=== PATIENT | female | born 1960 | race Caucasian/White ===

== ENCOUNTER 2017-12-26 10:29 | Inpatient (IN) | payer MEDICAID ==
[~2017-12-26] VITALS: Ht 167.6 cm; Wt 87.2 kg
[~2017-12-26 10:29] MED LIST: SIMV40TA3 PO
[2017-12-26 11:16] LABS: BASOPHILS # (AUTO) 0.03 x10^3/uL (0-0.1); BASOPHILS % (AUTO) 0 % (0-1); EOSINOPHILS % (AUTO) 4 % (1-7); LYMPHOCYTES # (AUTO) 2.65 x10^3/uL (1-3.4); LYMPHOCYTES % (AUTO) 29 % (22-44); MD NO; MEAN CORPUSCULAR HEMOGLOBIN 29.1 pg (27.0-34.8); MEAN CORPUSCULAR HGB CONC 34.1 g/dL (32.4-35.8); MEAN CORPUSCULAR VOLUME 85.3 fL (80-100); MEAN PLATELET VOLUME 7.2 fL (7.4-10.4); MONOCYTES # (AUTO) 0.82 x10^3/uL (0.2-0.8); MONOCYTES % (AUTO) 9 % (2-9); NEUTROPHILS # (AUTO) 5.41 x10^3/uL (1.8-6.8); NEUTROPHILS % (AUTO) 58 % (42-75); PLATELET COUNT 454 x10^3/uL (130-400); RED CELL DISTRIBUTION WIDTH 13.9 % (9.6-15.2)
[2017-12-26 11:24] LABS: ALBUMIN 3.3 g/dL (3.4-5.0); ANION GAP 8 mmol/L (5-15); CALCIUM 8.6 mg/dL (8.5-10.1); CHLORIDE 108 mmol/L (98-107)
[2017-12-26 11:28] LABS: ALANINE AMINOTRANSFERASE 20 U/L (12-78); ALKALINE PHOSPHATASE 89 U/L (45-117); BILIRUBIN,TOTAL 0.4 mg/dL (0.2-1.0); CREATININE 0.79 mg/dL (0.55-1.02); TOTAL PROTEIN 7.3 g/dL (6.4-8.2)
[2017-12-26] MEDS ORDERED: MORPHINE SULFATE 4 MG/ML, 1ML IVPush PRN (11:30)
[2017-12-26] MEDS ORDERED: SODIUM CHLORIDE FLUSH 10ML SYR IVF ONE (11:30)
[2017-12-26] MEDS ORDERED: ONDANSETRON 2MG/ML, 2ML IVPush ONE (11:30)
[2017-12-26] MEDS ORDERED: FLUT1AER INH (11:49)
[2017-12-26] MEDS ORDERED: ALBU2.5V11 NEB (11:49)
[2017-12-26] MEDS ORDERED: MORPHINE SULFATE 4 MG/ML, 1ML ONE ×2 (12:10→15:07)
[2017-12-26] MEDS ORDERED: ONDANSETRON 2MG/ML, 2ML ONE (12:12)
[2017-12-26 12:21] LABS: INTERNATIONAL NORMALIZED RATIO 0.9 (0.93-1.1); PROTHROMBIN TIME 9.4 Seconds (9.6-11.5)
[2017-12-26] MEDS ORDERED: OMNIPAQUE 350 MG/ML, 100ML BOTTLE ONE (12:31)
[2017-12-26] MEDS ORDERED: METRONIDAZOLE PMX 500MG/100ML 100 ML IV ONE (13:00)
[2017-12-26] MEDS ORDERED: AMPICILLIN/SULBACTAM 3 GM in SODIUM CHLORIDE 0.9% 100 ML IV ONE (13:00)
[2017-12-26] MEDS ORDERED: METRONIDAZOLE PMX 500MG/100ML 100 ML ONE (13:21)
[2017-12-26] MEDS: SODIUM CHLORIDE 0.9% 1,000 ML IV SCH (14:11)
[2017-12-26] MEDS ORDERED: ENALAPRILAT 1.25 MG/ML, 2ML IVPush PRN (14:30)
[2017-12-26] MEDS ORDERED: ALBUTEROL SULFATE 2.5MG/0.5ML NEB PRN (14:30)
[2017-12-26] MEDS: METRONIDAZOLE PMX 500MG/100ML 100 ML IV SCH ×2 (14:30→22:46)
[2017-12-26] MEDS: CEFTRIAXONE PMX 1GM/50ML 50 ML IV SCH (16:54)
[2017-12-26] MEDS: NICOTINE 7 MG/24 HR PATCH.TD24 TD SCH (16:55)
[2017-12-26 17:16] LABS: HEMOGRAM NOTE RECHECKED
[2017-12-26 17:21] VITALS: BP 110/70
[2017-12-26 18:54] LABS: MICROSCOPIC NOT IND
[2017-12-26 18:56] LABS: CULTURE INDICATED? NO
[2017-12-26 20:04] VITALS: BP 110/72
[2017-12-26] MEDS: SIMVASTATIN 40 MG TABLET PO SCH (20:17)
[2017-12-26] MEDS: ACETAMINOPHEN 325 MG TABLET PO PRN (20:17)
[2017-12-27 01:45] VITALS: BP 123/74
[2017-12-27 05:59] LABS: BASOPHILS # (AUTO) 0.04 x10^3/uL (0-0.1); BASOPHILS % (AUTO) 0 % (0-1); EOSINOPHILS # (AUTO) 0.38 x10^3/uL (0-0.4); EOSINOPHILS % (AUTO) 4 % (1-7); LYMPHOCYTES # (AUTO) 2.03 x10^3/uL (1-3.4); LYMPHOCYTES % (AUTO) 23 % (22-44); MD NO; MEAN CORPUSCULAR HEMOGLOBIN 28.8 pg (27.0-34.8); MEAN CORPUSCULAR HGB CONC 33.1 g/dL (32.4-35.8); MONOCYTES # (AUTO) 0.84 x10^3/uL (0.2-0.8); MONOCYTES % (AUTO) 9 % (2-9); NEUTROPHILS # (AUTO) 5.76 x10^3/uL (1.8-6.8); NEUTROPHILS % (AUTO) 64 % (42-75); PLATELET COUNT 372 x10^3/uL (130-400); RED BLOOD COUNT 4.05 x10^6/uL (3.82-5.3); RED CELL DISTRIBUTION WIDTH 14.3 % (9.6-15.2)
[2017-12-27 06:07] LABS: CHLORIDE 108 mmol/L (98-107)
[2017-12-27 06:11] LABS: ANION GAP 8 mmol/L (5-15); CALCIUM 7.9 mg/dL (8.5-10.1); CREATININE 0.55 mg/dL (0.55-1.02)
[2017-12-27] MEDS: SODIUM CHLORIDE 0.9% 1,000 ML IV SCH (07:39)
[2017-12-27] MEDS: METRONIDAZOLE PMX 500MG/100ML 100 ML IV SCH ×3 (07:39→23:22)
[2017-12-27] MEDS: FLUTICASONE/VILANTEROL 100-25MCG/INH INH SCH (07:39)
[2017-12-27] MEDS: ONDANSETRON 2MG/ML, 2ML IVPush PRN (07:48)
[2017-12-27 07:50] VITALS: BP 125/68
[2017-12-27 14:40] VITALS: BP 104/68
[2017-12-27] MEDS: ACETAMINOPHEN 325 MG TABLET PO PRN (15:45)
[2017-12-27] MEDS: NICOTINE 7 MG/24 HR PATCH.TD24 TD SCH (16:28)
[2017-12-27] MEDS: CEFTRIAXONE PMX 1GM/50ML 50 ML IV SCH (16:28)
[2017-12-27 20:00] VITALS: BP 111/58
[2017-12-27] MEDS: SIMVASTATIN 40 MG TABLET PO SCH (20:30)
[2017-12-28 02:00] VITALS: BP 120/64
[2017-12-28 05:26] LABS: BASOPHILS # (AUTO) 0.04 x10^3/uL (0-0.1); BASOPHILS % (AUTO) 0 % (0-1); EOSINOPHILS # (AUTO) 0.37 x10^3/uL (0-0.4); EOSINOPHILS % (AUTO) 4 % (1-7); LYMPHOCYTES # (AUTO) 1.84 x10^3/uL (1-3.4); LYMPHOCYTES % (AUTO) 18 % (22-44); MD NO; MEAN CORPUSCULAR HEMOGLOBIN 29.1 pg (27.0-34.8); MEAN CORPUSCULAR HGB CONC 33.7 g/dL (32.4-35.8); MEAN CORPUSCULAR VOLUME 86.3 fL (80-100); MEAN PLATELET VOLUME 7.4 fL (7.4-10.4); MONOCYTES % (AUTO) 10 % (2-9); NEUTROPHILS # (AUTO) 7.28 x10^3/uL (1.8-6.8); NEUTROPHILS % (AUTO) 69 % (42-75); PLATELET COUNT 380 x10^3/uL (130-400); RED BLOOD COUNT 3.56 x10^6/uL (3.82-5.3)
[2017-12-28 05:32] LABS: CHLORIDE 111 mmol/L (98-107)
[2017-12-28 05:38] LABS: ANION GAP 6 mmol/L (5-15); CALCIUM 7.8 mg/dL (8.5-10.1); CREATININE 0.69 mg/dL (0.55-1.02)
[2017-12-28 07:50] VITALS: BP 116/63
[2017-12-28] MEDS: METRONIDAZOLE PMX 500MG/100ML 100 ML IV SCH ×3 (07:51→23:41)
[2017-12-28] MEDS: FLUTICASONE/VILANTEROL 100-25MCG/INH INH SCH (07:51)
[2017-12-28] MEDS ORDERED: OMNIPAQUE 350 MG/ML, 100ML BOTTLE ONE (12:14)
[2017-12-28 14:10] VITALS: BP 117/65
[2017-12-28] MEDS ORDERED: FENTANYL PF 100 MCG/2ML ONE (14:23)
[2017-12-28] MEDS ORDERED: NALOXONE 1 MG/ML, 2ML ONE (14:24)
[2017-12-28 14:33] VITALS: BP 118/56
[2017-12-28] MEDS ORDERED: VISIPAQUE 320 MG/ML, 150ML BOTTLE ONE ×2 (15:00→15:51)
[2017-12-28] MEDS ORDERED: LIDOCAINE 2%, 10ML ONE (15:14)
[2017-12-28] MEDS: CEFTRIAXONE PMX 1GM/50ML 50 ML IV SCH (18:06)
[2017-12-28] MEDS: NICOTINE 7 MG/24 HR PATCH.TD24 TD SCH (18:06)
[2017-12-28 18:37] VITALS: BP 120/56
[2017-12-28] MEDS: SIMVASTATIN 40 MG TABLET PO SCH (20:41)
[2017-12-29] VITALS (12 sets, daily range): BP systolic 83–128; BP diastolic 52–66
[2017-12-29] MEDS: ONDANSETRON 2MG/ML, 2ML IVPush PRN (04:53)
[2017-12-29 05:29] LABS: CHLORIDE 113 mmol/L (98-107)
[2017-12-29 05:34] LABS: BASOPHILS # (AUTO) 0.03 x10^3/uL (0-0.1); BASOPHILS % (AUTO) 0 % (0-1); EOSINOPHILS # (AUTO) 0.22 x10^3/uL (0-0.4); EOSINOPHILS % (AUTO) 2 % (1-7); LYMPHOCYTES # (AUTO) 1.85 x10^3/uL (1-3.4); LYMPHOCYTES % (AUTO) 16 % (22-44); MD NO; MEAN CORPUSCULAR HEMOGLOBIN 29.5 pg (27.0-34.8); MEAN CORPUSCULAR HGB CONC 33.9 g/dL (32.4-35.8); MEAN CORPUSCULAR VOLUME 86.8 fL (80-100); MEAN PLATELET VOLUME 7.4 fL (7.4-10.4); MONOCYTES # (AUTO) 0.83 x10^3/uL (0.2-0.8); MONOCYTES % (AUTO) 7 % (2-9); NEUTROPHILS # (AUTO) 8.52 x10^3/uL (1.8-6.8); NEUTROPHILS % (AUTO) 75 % (42-75); PLATELET COUNT 346 x10^3/uL (130-400); RED CELL DISTRIBUTION WIDTH 14.2 % (9.6-15.2)
[2017-12-29 05:36] LABS: ANION GAP 6 mmol/L (5-15); CALCIUM 7.9 mg/dL (8.5-10.1); CREATININE 0.53 mg/dL (0.55-1.02)
[2017-12-29] MEDS: FLUTICASONE/VILANTEROL 100-25MCG/INH INH SCH (07:43)
[2017-12-29] MEDS: METRONIDAZOLE PMX 500MG/100ML 100 ML IV SCH ×2 (07:43→17:35)
[2017-12-29] MEDS ORDERED: CEFOTETAN 2 GM ONE (10:25)
[2017-12-29] MEDS ORDERED: SODIUM CHLORIDE 0.9% 1,000ML IVBOLUS STA (11:24)
[2017-12-29] MEDS ORDERED: DIPHENHYDRAMINE 12.5MG/5ML, 10ML UDC PO ONE (12:00)
[2017-12-29] MEDS ORDERED: ACETAMINOPHEN 325 MG TABLET PO ONE ×2 (12:00→20:00)
[2017-12-29 16:20] LABS: TROPONIN I 0.038 ng/mL (0.000-0.045)
[2017-12-29] MEDS ORDERED: GOLYTELY 4,000ML ORAL.SOL PO ONE (17:00)
[2017-12-29] MEDS: NICOTINE 7 MG/24 HR PATCH.TD24 TD SCH (17:46)
[2017-12-29] MEDS: CEFTRIAXONE PMX 1GM/50ML 50 ML IV SCH (18:40)
[2017-12-29] MEDS ORDERED: DIPHENHYDRAMINE 50 MG/ML, 1ML IVPush ONE (20:00)
[2017-12-29] MEDS ORDERED: DEXAMETHASONE 4 MG/ML, 1ML IVPush ONE (20:00)
[2017-12-29] MEDS ORDERED: FENTANYL PF 250 MCG/5ML ONE (20:31)
[2017-12-29] MEDS: SIMVASTATIN 40 MG TABLET PO SCH (21:00)
[2017-12-29] MEDS ORDERED: DEXAMETHASONE 4 MG/ML, 1ML ONE (21:17)
[2017-12-29] MEDS ORDERED: PROPOFOL 10 MG/ML, 20ML ONE (21:56)
[2017-12-29] MEDS ORDERED: ONDANSETRON 2MG/ML, 2ML ONE (21:56)
[2017-12-29] MEDS ORDERED: SUCCINYLCHOLINE 20 MG/ML, 10ML ONE (21:56)
[2017-12-29] MEDS ORDERED: ROCURONIUM 10MG/ML,5ML ONE (21:56)
[2017-12-29] MEDS ORDERED: MIDAZOLAM 1 MG/ML, 2ML IV PRN (22:00)
[2017-12-29] MEDS ORDERED: hydrALAzine 20 MG/ML, 1ML IV PRN (22:00)
[2017-12-29] MEDS ORDERED: ALBUTEROL/IPRATROPIUM 2.5MG/0.5MG, 3 ML NPPB PRN (22:00)
[2017-12-29] MEDS ORDERED: MEPERIDINE/PF 25MG/0.5ML IVPush PRN (22:00)
[2017-12-29] MEDS ORDERED: HYDROmorphone 1 MG/ML, 1ML IV PRN (22:00)
[2017-12-29] MEDS ORDERED: morphine SULFATE 10 MG/ML, 1ML IV PRN (22:00)
[2017-12-29] MEDS ORDERED: LABETALOL 5MG/ML, 20ML IV PRN (22:00)
[2017-12-29] MEDS ORDERED: PROMETHAZINE 12.5 MG SUPP PR PRN (22:00)
[2017-12-29] MEDS ORDERED: ALBUTEROL SULFATE 2.5 MG/3 ML NPPB PRN (22:00)
[2017-12-29] MEDS ORDERED: GLYCOPYRROLATE 0.4 MG/2 ML, 2ML ONE (22:02)
[2017-12-29] MEDS ORDERED: NEOSTIGMINE 1 MG/ML, 10ML ONE ×2 (22:05)
[2017-12-29] MEDS ORDERED: MEPERIDINE/PF 50 MG/ML ONE (22:12)
[2017-12-29] MEDS ORDERED: ALBUTEROL SULFATE 2.5MG/0.5ML NPPB PRN (22:30)
[2017-12-29] MEDS ORDERED: FENTANYL PF 100 MCG/2ML ONE (22:32)
[2017-12-29] MEDS ORDERED: ACETAMINOPHEN 650 MG/20.3 ML UDC ONE (22:36)
[2017-12-29] MEDS ORDERED: OXYcodone 5 MG/5 ML ORAL.SOL UDC ONE (22:36)
[2017-12-29] MEDS: FENTANYL PF 100 MCG/2ML IV PRN ×2 (22:40→22:50)
[2017-12-29] MEDS: OXYcodone 5 MG/5 ML ORAL.SOL UDC PO PRN (22:49)
[2017-12-29] MEDS: ACETAMINOPHEN 325 MG TABLET PO PRN (22:50)
[2017-12-30 00:29] VITALS: BP 120/78
[2017-12-30] MEDS: METRONIDAZOLE PMX 500MG/100ML 100 ML IV SCH ×3 (02:34→18:01)
[2017-12-30 02:50] VITALS: BP 131/80
[2017-12-30 04:54] LABS: MEAN CORPUSCULAR HEMOGLOBIN 30.1 pg (27.0-34.8); MEAN CORPUSCULAR HGB CONC 33.4 g/dL (32.4-35.8); MEAN CORPUSCULAR VOLUME 90.1 fL (80-100); MEAN PLATELET VOLUME 7.5 fL (7.4-10.4); PLATELET COUNT 285 x10^3/uL (130-400); RED CELL DISTRIBUTION WIDTH 13.9 % (9.6-15.2)
[2017-12-30 05:05] LABS: CALCIUM 7.6 mg/dL (8.5-10.1); CHLORIDE 112 mmol/L (98-107)
[2017-12-30 05:13] LABS: ANION GAP 6 mmol/L (5-15); CREATININE 0.62 mg/dL (0.55-1.02); TROPONIN I 0.035 ng/mL (0.000-0.045)
[2017-12-30 05:55] LABS: BASOPHILS # (AUTO) 0.01 x10^3/uL (0-0.1); BASOPHILS % (AUTO) 0 % (0-1); EOSINOPHILS # (AUTO) 0.01 x10^3/uL (0-0.4); EOSINOPHILS % (AUTO) 0 % (1-7); LYMPHOCYTES # (AUTO) 0.84 x10^3/uL (1-3.4); LYMPHOCYTES % (AUTO) 5 % (22-44); MD SCAN; MONOCYTES # (AUTO) 0.18 x10^3/uL (0.2-0.8); MONOCYTES % (AUTO) 1 % (2-9); NEUTROPHILS # (AUTO) 17.64 x10^3/uL (1.8-6.8); NEUTROPHILS % (AUTO) 95 % (42-75)
[2017-12-30 07:55] VITALS: BP 138/71
[2017-12-30] MEDS: FLUTICASONE/VILANTEROL 100-25MCG/INH INH SCH (10:10)
[2017-12-30] MEDS ORDERED: OXYcodone IR 5MG TABLET ONE (12:17)
[2017-12-30] MEDS: OXYcodone 5 MG/5 ML ORAL.SOL UDC PO PRN ×3 (12:23→20:51)
[2017-12-30 13:30] VITALS: BP 128/81
[2017-12-30] MEDS: CEFTRIAXONE PMX 1GM/50ML 50 ML IV SCH (18:01)
[2017-12-30] MEDS: NICOTINE 7 MG/24 HR PATCH.TD24 TD SCH (18:01)
[2017-12-30 19:37] VITALS: BP 138/76
[2017-12-30] MEDS: SIMVASTATIN 40 MG TABLET PO SCH (20:07)
[2017-12-30] MEDS: ONDANSETRON 4 MG TABLET PO PRN (20:08)
[2017-12-31] MEDS: METRONIDAZOLE PMX 500MG/100ML 100 ML IV SCH ×3 (02:06→18:09)
[2017-12-31] MEDS: OXYcodone 5 MG/5 ML ORAL.SOL UDC PO PRN ×4 (02:06→20:01)
[2017-12-31 02:07] VITALS: BP 133/71
[2017-12-31 05:16] LABS: BASOPHILS # (AUTO) 0.05 x10^3/uL (0-0.1); BASOPHILS % (AUTO) 0 % (0-1); EOSINOPHILS % (AUTO) 0 % (1-7); LYMPHOCYTES # (AUTO) 1.93 x10^3/uL (1-3.4); LYMPHOCYTES % (AUTO) 12 % (22-44); MD NO; MEAN CORPUSCULAR HEMOGLOBIN 30.7 pg (27.0-34.8); MEAN CORPUSCULAR HGB CONC 34.1 g/dL (32.4-35.8); MEAN PLATELET VOLUME 7.4 fL (7.4-10.4); MONOCYTES # (AUTO) 1.11 x10^3/uL (0.2-0.8); MONOCYTES % (AUTO) 7 % (2-9); NEUTROPHILS % (AUTO) 80 % (42-75); PLATELET COUNT 317 x10^3/uL (130-400); RED BLOOD COUNT 2.97 x10^6/uL (3.82-5.3); RED CELL DISTRIBUTION WIDTH 14.4 % (9.6-15.2)
[2017-12-31 05:24] LABS: ANION GAP 6 mmol/L (5-15); CHLORIDE 108 mmol/L (98-107)
[2017-12-31 05:25] LABS: CREATININE 0.57 mg/dL (0.55-1.02)
[2017-12-31] MEDS ORDERED: CALCIUM CARBONATE 500 MG TAB.CHEW PO PRN (07:00)
[2017-12-31 07:13] VITALS: BP 138/76
[2017-12-31] MEDS: FLUTICASONE/VILANTEROL 100-25MCG/INH INH SCH (08:29)
[2017-12-31 13:49] VITALS: BP 125/68
[2017-12-31] MEDS ORDERED: METHOCARBAMOL 500 MG TABLET PO PRN (16:30)
[2017-12-31] MEDS: CEFTRIAXONE PMX 1GM/50ML 50 ML IV SCH (16:54)
[2017-12-31] MEDS: PANTOPRAZOLE 20MG TABLET PO SCH (16:55)
[2017-12-31] MEDS: NICOTINE 7 MG/24 HR PATCH.TD24 TD SCH (18:02)
[2017-12-31 19:47] VITALS: BP 121/70
[2017-12-31] MEDS: SIMVASTATIN 40 MG TABLET PO SCH (20:02)
[2017-12-31] MEDS: FAMOTIDINE 20 MG TABLET PO SCH (20:02)
[2018-01-01] MEDS: OXYcodone 5 MG/5 ML ORAL.SOL UDC PO PRN ×5 (01:21→22:29)
[2018-01-01] MEDS: METRONIDAZOLE PMX 500MG/100ML 100 ML IV SCH ×3 (01:21→17:48)
[2018-01-01 01:24] VITALS: BP 131/77
[2018-01-01] MEDS: PANTOPRAZOLE 20MG TABLET PO SCH ×2 (05:12→16:38)
[2018-01-01 05:21] LABS: BASOPHILS # (AUTO) 0.03 x10^3/uL (0-0.1); BASOPHILS % (AUTO) 0 % (0-1); EOSINOPHILS # (AUTO) 0.09 x10^3/uL (0-0.4); EOSINOPHILS % (AUTO) 1 % (1-7); LYMPHOCYTES # (AUTO) 2.06 x10^3/uL (1-3.4); LYMPHOCYTES % (AUTO) 21 % (22-44); MD NO; MEAN CORPUSCULAR HEMOGLOBIN 30.7 pg (27.0-34.8); MEAN CORPUSCULAR HGB CONC 33.8 g/dL (32.4-35.8); MEAN CORPUSCULAR VOLUME 90.8 fL (80-100); MEAN PLATELET VOLUME 7.1 fL (7.4-10.4); MONOCYTES # (AUTO) 0.97 x10^3/uL (0.2-0.8); MONOCYTES % (AUTO) 10 % (2-9); NEUTROPHILS # (AUTO) 6.86 x10^3/uL (1.8-6.8); NEUTROPHILS % (AUTO) 69 % (42-75); PLATELET COUNT 323 x10^3/uL (130-400); RED BLOOD COUNT 2.82 x10^6/uL (3.82-5.3); RED CELL DISTRIBUTION WIDTH 14.1 % (9.6-15.2)
[2018-01-01 05:30] LABS: ANION GAP 7 mmol/L (5-15); CALCIUM 7.8 mg/dL (8.5-10.1); CHLORIDE 108 mmol/L (98-107)
[2018-01-01 05:32] LABS: CREATININE 0.61 mg/dL (0.55-1.02)
[2018-01-01 06:45] VITALS: BP 128/83
[2018-01-01] MEDS: FLUTICASONE/VILANTEROL 100-25MCG/INH INH SCH (08:36)
[2018-01-01] MEDS: FAMOTIDINE 20 MG TABLET PO SCH ×2 (08:36→19:39)
[2018-01-01] MEDS: CALCIUM CARBONATE 500 MG TAB.CHEW PO PRN (08:48)
[2018-01-01] MEDS: DOCUSATE 100 MG CAPSULE PO SCH ×2 (08:48→19:26)
[2018-01-01 14:11] VITALS: BP 108/68
[2018-01-01] MEDS: CEFTRIAXONE PMX 1GM/50ML 50 ML IV SCH (16:39)
[2018-01-01] MEDS: NICOTINE 7 MG/24 HR PATCH.TD24 TD SCH (17:50)
[2018-01-01] MEDS: ONDANSETRON 4 MG TABLET PO PRN (19:39)
[2018-01-01] MEDS: SIMVASTATIN 40 MG TABLET PO SCH (19:39)
[2018-01-01 19:59] VITALS: BP 128/70
[2018-01-01] MEDS: ONDANSETRON 2MG/ML, 2ML IVPush PRN (22:29)
[2018-01-02] MEDS: METRONIDAZOLE PMX 500MG/100ML 100 ML IV SCH ×3 (01:19→17:55)
[2018-01-02 02:09] VITALS: BP 129/77
[2018-01-02] MEDS: PROMETHAZINE 25 MG/ML, 1ML IM PRN ×2 (02:11→08:25)
[2018-01-02 06:01] LABS: BASOPHILS # (AUTO) 0.01 x10^3/uL (0-0.1); BASOPHILS % (AUTO) 0 % (0-1); EOSINOPHILS # (AUTO) 0.14 x10^3/uL (0-0.4); EOSINOPHILS % (AUTO) 1 % (1-7); LYMPHOCYTES # (AUTO) 1.33 x10^3/uL (1-3.4); LYMPHOCYTES % (AUTO) 10 % (22-44); MD NO; MEAN CORPUSCULAR HEMOGLOBIN 30.9 pg (27.0-34.8); MEAN CORPUSCULAR HGB CONC 33.9 g/dL (32.4-35.8); MEAN CORPUSCULAR VOLUME 91.1 fL (80-100); MEAN PLATELET VOLUME 7.1 fL (7.4-10.4); MONOCYTES # (AUTO) 0.12 x10^3/uL (0.2-0.8); MONOCYTES % (AUTO) 1 % (2-9); NEUTROPHILS # (AUTO) 11.98 x10^3/uL (1.8-6.8); NEUTROPHILS % (AUTO) 88 % (42-75); PLATELET COUNT 438 x10^3/uL (130-400); RED BLOOD COUNT 3.48 x10^6/uL (3.82-5.3); RED CELL DISTRIBUTION WIDTH 14.6 % (9.6-15.2)
[2018-01-02 07:51] VITALS: BP 127/77
[2018-01-02] MEDS: DOCUSATE 100 MG CAPSULE PO SCH ×2 (08:18→20:41)
[2018-01-02] MEDS: PANTOPRAZOLE 20MG TABLET PO SCH ×2 (08:18→20:41)
[2018-01-02] MEDS: FAMOTIDINE 20 MG TABLET PO SCH ×2 (08:18→20:41)
[2018-01-02] MEDS: FLUTICASONE/VILANTEROL 100-25MCG/INH INH SCH (08:18)
[2018-01-02] MEDS ORDERED: SODIUM CHLORIDE 0.9% 1,000 ML IV SCH (12:43)
[2018-01-02] MEDS: METOCLOPRAMIDE 5 MG/ML, 2ML IVPush SCH ×2 (13:00→17:58)
[2018-01-02] MEDS ORDERED: MAGNESIUM SULFATE PMX 2GM/50ML 50 ML IV ONE (13:00)
[2018-01-02 13:52] VITALS: BP 124/78
[2018-01-02] MEDS: SODIUM CHLORIDE 0.9% 1,000 ML with POTASSIUM CHLORIDE 20 MEQ IV SCH (14:32)
[2018-01-02] MEDS: NICOTINE 7 MG/24 HR PATCH.TD24 TD SCH (16:25)
[2018-01-02] MEDS: CEFTRIAXONE PMX 1GM/50ML 50 ML IV SCH (16:25)
[2018-01-02 18:57] VITALS: BP 118/68
[2018-01-02] MEDS: SIMVASTATIN 40 MG TABLET PO SCH (20:41)
[2018-01-02] MEDS: ONDANSETRON 2MG/ML, 2ML IVPush PRN (23:24)
[2018-01-02] MEDS ORDERED: ASPIRIN 81 MG TABLET CHEW ONE (23:58)
[2018-01-03] MEDS ORDERED: MAALOX/HYOSCYAMINE/LIDOCAINE 45 ML BTL PO ONE
[2018-01-03] MEDS ORDERED: ASPIRIN 81 MG TABLET CHEW PO ONE
[2018-01-03] MEDS ORDERED: NITROGLYCERIN 0.4 MG BOTTLE (25 TABS) SL PRN
[2018-01-03 00:26] LABS: TROPONIN I 0.024 ng/mL (0.000-0.045)
[2018-01-03 00:51] VITALS: BP 113/73
[2018-01-03] MEDS: METRONIDAZOLE PMX 500MG/100ML 100 ML IV SCH ×3 (01:21→17:44)
[2018-01-03] MEDS: SODIUM CHLORIDE 0.9% 1,000 ML with POTASSIUM CHLORIDE 20 MEQ IV SCH (05:11)
[2018-01-03 05:42] LABS: BASOPHILS # (AUTO) 0.02 x10^3/uL (0-0.1); BASOPHILS % (AUTO) 0 % (0-1); EOSINOPHILS # (AUTO) 0.14 x10^3/uL (0-0.4); EOSINOPHILS % (AUTO) 1 % (1-7); LYMPHOCYTES # (AUTO) 1.67 x10^3/uL (1-3.4); LYMPHOCYTES % (AUTO) 15 % (22-44); MD NO; MEAN CORPUSCULAR VOLUME 91.2 fL (80-100); MEAN PLATELET VOLUME 7.3 fL (7.4-10.4); MONOCYTES # (AUTO) 0.75 x10^3/uL (0.2-0.8); MONOCYTES % (AUTO) 7 % (2-9); NEUTROPHILS # (AUTO) 8.79 x10^3/uL (1.8-6.8); NEUTROPHILS % (AUTO) 77 % (42-75); PLATELET COUNT 433 x10^3/uL (130-400); RED BLOOD COUNT 3.12 x10^6/uL (3.82-5.3); RED CELL DISTRIBUTION WIDTH 15.1 % (9.6-15.2)
[2018-01-03 05:43] LABS: ANION GAP 7 mmol/L (5-15); CALCIUM 7.7 mg/dL (8.5-10.1); CHLORIDE 109 mmol/L (98-107)
[2018-01-03 05:44] LABS: CREATININE 0.53 mg/dL (0.55-1.02)
[2018-01-03 07:00] VITALS: BP 114/72
[2018-01-03] MEDS: FLUTICASONE/VILANTEROL 100-25MCG/INH INH SCH (08:25)
[2018-01-03] MEDS: DOCUSATE 100 MG CAPSULE PO SCH ×2 (08:25→19:56)
[2018-01-03] MEDS: ONDANSETRON 4 MG TABLET PO PRN (08:25)
[2018-01-03] MEDS: PANTOPRAZOLE 20MG TABLET PO SCH ×2 (08:25→19:56)
[2018-01-03] MEDS ORDERED: CEFTRIAXONE PMX 2GM/50ML 50 ML IV SCH (10:00)
[2018-01-03] MEDS ORDERED: HYDROmorphone 2 MG/ML, 1ML IVPush PRN (11:00)
[2018-01-03] MEDS ORDERED: KETOROLAC 10MG TABLET PO PRN (11:00)
[2018-01-03 13:25] VITALS: BP 133/78
[2018-01-03] MEDS: POLYETHYLENE GLYCOL 17 GM PACKET PO SCH (13:27)
[2018-01-03] MEDS ORDERED: ONDANSETRON 2MG/ML, 2ML IVPush PRN (15:38)
[2018-01-03] MEDS: D5%-0.45NACL+KCL 20MEQ 1,000 ML IV SCH (16:27)
[2018-01-03] MEDS: NICOTINE 7 MG/24 HR PATCH.TD24 TD SCH (17:44)
[2018-01-03] MEDS: ONDANSETRON ODT 4 MG PO PRN (18:22)
[2018-01-03] MEDS: SIMVASTATIN 40 MG TABLET PO SCH (19:56)
[2018-01-03 20:49] VITALS: BP 116/69
[2018-01-04] MEDS: METRONIDAZOLE PMX 500MG/100ML 100 ML IV SCH ×3 (02:07→17:58)
[2018-01-04 02:08] VITALS: BP 127/81
[2018-01-04] MEDS: D5%-0.45NACL+KCL 20MEQ 1,000 ML IV SCH (05:28)
[2018-01-04 05:47] LABS: BASOPHILS # (AUTO) 0.05 x10^3/uL (0-0.1); BASOPHILS % (AUTO) 1 % (0-1); EOSINOPHILS # (AUTO) 0.44 x10^3/uL (0-0.4); EOSINOPHILS % (AUTO) 5 % (1-7); LYMPHOCYTES % (AUTO) 17 % (22-44); MD NO; MEAN CORPUSCULAR HEMOGLOBIN 30.6 pg (27.0-34.8); MEAN CORPUSCULAR HGB CONC 33.7 g/dL (32.4-35.8); MEAN CORPUSCULAR VOLUME 90.9 fL (80-100); MEAN PLATELET VOLUME 6.7 fL (7.4-10.4); MONOCYTES # (AUTO) 0.67 x10^3/uL (0.2-0.8); MONOCYTES % (AUTO) 7 % (2-9); NEUTROPHILS % (AUTO) 71 % (42-75); PLATELET COUNT 549 x10^3/uL (130-400); RED BLOOD COUNT 3.12 x10^6/uL (3.82-5.3); RED CELL DISTRIBUTION WIDTH 16.1 % (9.6-15.2)
[2018-01-04 05:58] LABS: ALANINE AMINOTRANSFERASE 12 U/L (12-78); ALBUMIN 2.1 g/dL (3.4-5.0); ANION GAP 8 mmol/L (5-15); CALCIUM 7.7 mg/dL (8.5-10.1); CHLORIDE 107 mmol/L (98-107); CREATININE 0.62 mg/dL (0.55-1.02)
[2018-01-04 06:00] LABS: ALKALINE PHOSPHATASE 34 U/L (45-117); BILIRUBIN,TOTAL 0.2 mg/dL (0.2-1.0); TOTAL PROTEIN 5.2 g/dL (6.4-8.2)
[2018-01-04] MEDS ORDERED: SODIUM PHOSPHATE 30 MMOL in SODIUM CHLORIDE 0.9% 500 ML IV ONE (07:00)
[2018-01-04] MEDS ORDERED: SODIUM PHOSPHATE 4 MEQ/ML IV SCH (07:00)
[2018-01-04 07:02] VITALS: BP 124/80
[2018-01-04] MEDS: FLUTICASONE/VILANTEROL 100-25MCG/INH INH SCH (09:02)
[2018-01-04] MEDS: POLYETHYLENE GLYCOL 17 GM PACKET PO SCH (09:02)
[2018-01-04] MEDS: DOCUSATE 100 MG CAPSULE PO SCH ×2 (09:02→19:40)
[2018-01-04] MEDS: PANTOPRAZOLE 20MG TABLET PO SCH ×2 (09:02→19:40)
[2018-01-04] MEDS: CEFTRIAXONE 2 GM in DEXTROSE 5% 50 ML IV SCH (10:01)
[2018-01-04 14:54] VITALS: BP 127/78
[2018-01-04] MEDS: NICOTINE 7 MG/24 HR PATCH.TD24 TD SCH (16:28)
[2018-01-04] MEDS: ACETAMINOPHEN 325 MG TABLET PO PRN ×2 (16:28→22:36)
[2018-01-04 19:37] VITALS: BP 109/68
[2018-01-04] MEDS: SIMVASTATIN 40 MG TABLET PO SCH (19:40)
[2018-01-04] MEDS: ONDANSETRON ODT 4 MG PO PRN (20:49)
[2018-01-05 00:25] VITALS: BP 118/70
[2018-01-05 00:29] VITALS: BP 118/72
[2018-01-05] MEDS: METRONIDAZOLE PMX 500MG/100ML 100 ML IV SCH ×3 (02:19→17:35)
[2018-01-05 05:23] LABS: BASOPHILS # (AUTO) 0.03 x10^3/uL (0-0.1); BASOPHILS % (AUTO) 0 % (0-1); EOSINOPHILS # (AUTO) 0.57 x10^3/uL (0-0.4); EOSINOPHILS % (AUTO) 7 % (1-7); LYMPHOCYTES # (AUTO) 1.29 x10^3/uL (1-3.4); LYMPHOCYTES % (AUTO) 16 % (22-44); MD NO; MEAN CORPUSCULAR HEMOGLOBIN 30.1 pg (27.0-34.8); MEAN CORPUSCULAR HGB CONC 32.9 g/dL (32.4-35.8); MEAN CORPUSCULAR VOLUME 91.4 fL (80-100); MEAN PLATELET VOLUME 7.1 fL (7.4-10.4); MONOCYTES # (AUTO) 0.76 x10^3/uL (0.2-0.8); MONOCYTES % (AUTO) 10 % (2-9); NEUTROPHILS # (AUTO) 5.38 x10^3/uL (1.8-6.8); NEUTROPHILS % (AUTO) 67 % (42-75); PLATELET COUNT 591 x10^3/uL (130-400); RED BLOOD COUNT 3.12 x10^6/uL (3.82-5.3); RED CELL DISTRIBUTION WIDTH 15.9 % (9.6-15.2)
[2018-01-05 05:33] LABS: CHLORIDE 109 mmol/L (98-107)
[2018-01-05 05:37] LABS: ALBUMIN 2.1 g/dL (3.4-5.0); ANION GAP 9 mmol/L (5-15); CALCIUM 7.8 mg/dL (8.5-10.1); CREATININE 0.52 mg/dL (0.55-1.02)
[2018-01-05] MEDS: D5%-0.45NACL+KCL 20MEQ 1,000 ML IV SCH (07:16)
[2018-01-05 09:30] VITALS: BP 117/57
[2018-01-05] MEDS: POLYETHYLENE GLYCOL 17 GM PACKET PO SCH (09:49)
[2018-01-05] MEDS: PANTOPRAZOLE 20MG TABLET PO SCH ×2 (09:49→20:18)
[2018-01-05] MEDS: DOCUSATE 100 MG CAPSULE PO SCH ×2 (09:49→20:18)
[2018-01-05] MEDS: FLUTICASONE/VILANTEROL 100-25MCG/INH INH SCH (09:49)
[2018-01-05] MEDS: CEFTRIAXONE 2 GM in DEXTROSE 5% 50 ML IV SCH (11:07)
[2018-01-05 13:12] LABS: ALBUMIN 2.3 g/dL (3.4-5.0); ANION GAP 8 mmol/L (5-15); CALCIUM 7.9 mg/dL (8.5-10.1); CHLORIDE 106 mmol/L (98-107); CREATININE 0.55 mg/dL (0.55-1.02)
[2018-01-05] MEDS: ENOXAPARIN 40 MG/0.4 ML SQ SCH (13:25)
[2018-01-05 14:19] VITALS: BP 114/71
[2018-01-05] MEDS: NICOTINE 7 MG/24 HR PATCH.TD24 TD SCH (17:34)
[2018-01-05 20:14] VITALS: BP 119/72
[2018-01-05] MEDS: SIMVASTATIN 40 MG TABLET PO SCH (20:18)
[2018-01-06 02:17] VITALS: BP 117/70
[2018-01-06] MEDS: METRONIDAZOLE PMX 500MG/100ML 100 ML IV SCH ×2 (02:21→10:37)
[2018-01-06] MEDS: CALCIUM CARBONATE 500 MG TAB.CHEW PO PRN (02:40)
[2018-01-06 05:13] LABS: BASOPHILS # (AUTO) 0.03 x10^3/uL (0-0.1); BASOPHILS % (AUTO) 0 % (0-1); EOSINOPHILS # (AUTO) 0.38 x10^3/uL (0-0.4); EOSINOPHILS % (AUTO) 5 % (1-7); LYMPHOCYTES # (AUTO) 1.34 x10^3/uL (1-3.4); LYMPHOCYTES % (AUTO) 18 % (22-44); MD NO; MEAN CORPUSCULAR HEMOGLOBIN 30.9 pg (27.0-34.8); MEAN CORPUSCULAR HGB CONC 33.7 g/dL (32.4-35.8); MEAN CORPUSCULAR VOLUME 91.7 fL (80-100); MEAN PLATELET VOLUME 7.2 fL (7.4-10.4); MONOCYTES # (AUTO) 0.84 x10^3/uL (0.2-0.8); MONOCYTES % (AUTO) 12 % (2-9); NEUTROPHILS # (AUTO) 4.71 x10^3/uL (1.8-6.8); NEUTROPHILS % (AUTO) 65 % (42-75); PLATELET COUNT 566 x10^3/uL (130-400); RED CELL DISTRIBUTION WIDTH 15.5 % (9.6-15.2)
[2018-01-06 06:45] VITALS: BP 134/78
[2018-01-06 06:50] LABS: ALBUMIN 2.2 g/dL (3.4-5.0); ANION GAP 8 mmol/L (5-15); CHLORIDE 108 mmol/L (98-107); CREATININE 0.53 mg/dL (0.55-1.02)
[2018-01-06] MEDS: PANTOPRAZOLE 20MG TABLET PO SCH (09:37)
[2018-01-06] MEDS: DOCUSATE 100 MG CAPSULE PO SCH (09:37)
[2018-01-06] MEDS: POLYETHYLENE GLYCOL 17 GM PACKET PO SCH (09:37)
[2018-01-06] MEDS: FLUTICASONE/VILANTEROL 100-25MCG/INH INH SCH (09:37)
[2018-01-06] MEDS ORDERED: ASPI-621 PO (11:36)
[2018-01-06] MEDS ORDERED: METR500T PO (11:36)
[2018-01-06] MEDS ORDERED: PANT20TA3 PO (11:36)
[2018-01-06] MEDS ORDERED: CIPR500T87 PO (11:36)
[2018-01-06] MEDS ORDERED: CARV3.1212 PO (11:38)
[2018-01-06] MEDS: CEFTRIAXONE 2 GM in DEXTROSE 5% 50 ML IV SCH (11:44)
[2018-01-06] MEDS: ENOXAPARIN 40 MG/0.4 ML SQ SCH (12:44)
[2018-01-06 12:57] VITALS: BP 130/78
[2018-01-07] MEDS ORDERED: ASPIRIN 81 MG TABLET EC PO SCH (06:00)
== END 2018-01-06 17:00 | disposition home health service (06) | DRG 330 ==
LOC: ED 13:04 → EDIP 13:25 → 3NE 15:35 → 5SO 12-29 17:04 → 3NE 01-01 11:59 → 5SO 01-03 00:45 → DCLOUNGE 01-06 16:26
PROVIDERS: ADMIT Internal Medicine; ATTEND Internal Medicine
PROC: 04VB3DZ Restriction of Inferior Mesenteric Artery with Intraluminal Device, Percutaneous Approach (ICD-10-PCS; 2017-12-29)
PROC: 0D1L0Z4 Bypass Transverse Colon to Cutaneous, Open Approach (ICD-10-PCS; 2017-12-29)
PROC: 0DBM0ZZ Excision of Descending Colon, Open Approach (ICD-10-PCS; 2017-12-29)
PROC: 30233N1 Transfusion of Nonautologous Red Blood Cells into Peripheral Vein, Percutaneous Approach (ICD-10-PCS; principal; 2017-12-29 20:45)
DX: K57.33 Diverticulitis of large intestine without perforation or abscess with bleeding (principal); D62 Acute posthemorrhagic anemia; E44.1 Mild protein-calorie malnutrition; K56.7 Ileus, unspecified; D72.829 Elevated white blood cell count, unspecified; Z68.31 Body mass index [BMI] 31.0-31.9, adult; E78.5 Hyperlipidemia, unspecified; F17.200 Nicotine dependence, unspecified, uncomplicated; I25.10 Atherosclerotic heart disease of native coronary artery without angina pectoris; I25.2 Old myocardial infarction; J45.909 Unspecified asthma, uncomplicated; K21.9 Gastro-esophageal reflux disease without esophagitis; Y84.8 Other medical procedures as the cause of abnormal reaction of the patient, or of later complication, without mention of misadventure at the time of the procedure; Z82.49 Family history of ischemic heart disease and other diseases of the circulatory system; Z83.3 Family history of diabetes mellitus; Z85.41 Personal history of malignant neoplasm of cervix uteri; Z87.442 Personal history of urinary calculi; Z90.49 Acquired absence of other specified parts of digestive tract; Z90.710 Acquired absence of both cervix and uterus; Z93.3 Colostomy status; Z95.5 Presence of coronary angioplasty implant and graft; Z88.8 Allergy status to other drugs, medicaments and biological substances
CPT/HCPCS: 36415; 37244; 74174; 74177; 80048; 80053; 81003; 82040; 83605; 83690; 83735; 84100; 84484; 85014; 85018; 85025; 85610; 85730; 86078; 86850; 86900; 86923; 88307; 93005; 93306; 99156; 99157; 99285; C1894; J0295; J0696; J1100; J1650; J2175; J2405; J2550; J2704; J2710; J3010; J3480; J3490; Q0162; Q9967; C1751; C1760; C1765; C1769; J0330; J1200; J2310; J2765; J3475; J7030; J7040; P9016; S0074

== ENCOUNTER 2018-03-26 12:06 | Inpatient (IN) | payer MEDICAID ==
[~2018-03-26] VITALS: Ht 170.2 cm; Wt 84.5 kg
[~2018-03-26 12:06] MED LIST changes: +ALBU2.5V11 NEB; +ASPI-621 PO; +CARV3.1212 PO; +CIPR500T87 PO; +EPHEDRINE 50 MG/ML, 1ML ONE; +FLUT1AER INH; +METR500T PO; +PANT20TA3 PO; +PHENYLEPHRINE 10 MG/ML ONE
[2018-03-26] MEDS ORDERED: LACTATED RINGERS 1,000 ML IV SCH (13:07)
[2018-03-26 13:10] VITALS: BP 149/86
[2018-03-26] MEDS ORDERED: EPINEPHRINE 1 MG/ML, 1ML ONE (13:26)
[2018-03-26] MEDS ORDERED: BUPIVACAINE 0.25% ONE (13:26)
[2018-03-26] MEDS ORDERED: MIDAZOLAM 1 MG/ML, 2ML ONE (13:42)
[2018-03-26] MEDS ORDERED: FENTANYL PF 250 MCG/5ML ONE ×2 (13:43→15:42)
[2018-03-26] MEDS ORDERED: BUPIVACAINE/PF-EPI 0.25% 1:200K INFIL ONE (14:29)
[2018-03-26] MEDS ORDERED: DEXAMETHASONE 4 MG/ML, 1ML ONE (15:44)
[2018-03-26] MEDS ORDERED: SUCCINYLCHOLINE 20 MG/ML, 10ML ONE (15:44)
[2018-03-26] MEDS ORDERED: PROPOFOL 10 MG/ML, 20ML ONE (15:44)
[2018-03-26] MEDS ORDERED: CEFAZOLIN 1,000 MG ONE (15:44)
[2018-03-26] MEDS ORDERED: ROCURONIUM 10MG/ML,5ML ONE ×2 (15:44)
[2018-03-26] MEDS ORDERED: ONDANSETRON 2MG/ML, 2ML ONE (15:44)
[2018-03-26] MEDS ORDERED: GLYCOPYRROLATE 0.2MG/1ML, 5ML ONE (15:44)
[2018-03-26] MEDS ORDERED: NEOSTIGMINE 1 MG/ML, 10ML ONE (15:44)
[2018-03-26] MEDS ORDERED: SUGAMMADEX 200 MG/2 ML IVPush ONE (16:33)
[2018-03-26] MEDS: LACTATED RINGERS 1,000 ML IV SCH (16:42)
[2018-03-26] MEDS ORDERED: LORazepam 2 MG/ML, 1ML IVPush PRN ×2 (17:00→17:30)
[2018-03-26] MEDS: ENOXAPARIN 30 MG/0.3 ML SQ SCH (17:00)
[2018-03-26] MEDS: ACETAMINOPHEN 500 MG TABLET PO SCH ×2 (17:00→23:06)
[2018-03-26] MEDS ORDERED: FENTANYL PF 100 MCG/2ML IVPush PRN (17:00)
[2018-03-26] MEDS ORDERED: CALCIUM CARBONATE 500 MG TAB.CHEW PO PRN (17:00)
[2018-03-26] MEDS ORDERED: DIPHENHYDRAMINE 50 MG/ML, 1ML IVPush PRN (17:00)
[2018-03-26] MEDS ORDERED: HYDROmorphone 2 MG/ML, 1ML ONE (17:15)
[2018-03-26] MEDS ORDERED: LORazepam 2 MG/ML, 1ML ONE (17:16)
[2018-03-26] MEDS ORDERED: OXYcodone 5 MG/5 ML ORAL.SOL UDC ONE (17:16)
[2018-03-26] MEDS ORDERED: ACETAMINOPHEN 325 MG TABLET PO PRN (17:30)
[2018-03-26] MEDS ORDERED: OXYcodone 5 MG/5 ML ORAL.SOL UDC PO PRN (17:30)
[2018-03-26] MEDS ORDERED: HYDROmorphone 1 MG/ML, 1ML IV PRN (17:30)
[2018-03-26] MEDS ORDERED: FENTANYL PF 100 MCG/2ML IV PRN (17:30)
[2018-03-26] MEDS ORDERED: ONDANSETRON ODT 8 MG PO PRN (17:30)
[2018-03-26] MEDS ORDERED: MORPHINE SULFATE 4 MG/ML, 1ML IVPush PRN (17:30)
[2018-03-26] MEDS ORDERED: HYDROcodone/APAP 7.5-325MG/15ML UDC PO PRN (17:30)
[2018-03-26] MEDS ORDERED: hydrALAzine 20 MG/ML, 1ML IV PRN (17:30)
[2018-03-26] MEDS ORDERED: PROMETHAZINE 25 MG/ML, 1ML IV PRN (17:30)
[2018-03-26] MEDS ORDERED: LABETALOL 5MG/ML, 20ML IV PRN (17:30)
[2018-03-26 19:03] VITALS: BP 134/75
[2018-03-27 00:41] VITALS: BP 145/72
[2018-03-27 03:22] VITALS: BP 130/68
[2018-03-27] MEDS: IBUPROFEN 800 MG TABLET PO SCH ×4 (03:34→23:50)
[2018-03-27] MEDS ORDERED: ALBUTEROL SULFATE 2.5 MG/3 ML ONE (04:44)
[2018-03-27 04:53] LABS: BASOPHILS # (AUTO) 0.02 x10^3/uL (0-0.1); BASOPHILS % (AUTO) 0 % (0-1); EOSINOPHILS % (AUTO) 0 % (1-7); LYMPHOCYTES # (AUTO) 0.52 x10^3/uL (1-3.4); LYMPHOCYTES % (AUTO) 4 % (22-44); MD NO; MEAN CORPUSCULAR HEMOGLOBIN 27.4 pg (27.0-34.8); MEAN CORPUSCULAR HGB CONC 33.1 g/dL (32.4-35.8); MEAN CORPUSCULAR VOLUME 82.8 fL (80-100); MEAN PLATELET VOLUME 7.4 fL (7.4-10.4); MONOCYTES # (AUTO) 0.54 x10^3/uL (0.2-0.8); MONOCYTES % (AUTO) 4 % (2-9); NEUTROPHILS # (AUTO) 13.55 x10^3/uL (1.8-6.8); NEUTROPHILS % (AUTO) 93 % (42-75); PLATELET COUNT 323 x10^3/uL (130-400); RED BLOOD COUNT 4.68 x10^6/uL (3.82-5.3); RED CELL DISTRIBUTION WIDTH 15.5 % (9.6-15.2)
[2018-03-27] MEDS ORDERED: ALBUTEROL 2.5 MG INH PRN (05:00)
[2018-03-27] MEDS ORDERED: ALBUTEROL SULFATE 2.5 MG/3 ML NPPB PRN ×3 (05:00→05:30)
[2018-03-27 05:07] LABS: ANION GAP 7 mmol/L (5-15); CALCIUM 8.6 mg/dL (8.5-10.1); CHLORIDE 107 mmol/L (98-107)
[2018-03-27] MEDS: OXYcodone IR 5MG TABLET PO PRN ×3 (06:00→20:49)
[2018-03-27] MEDS: ACETAMINOPHEN 500 MG TABLET PO SCH ×3 (06:00→16:54)
[2018-03-27] MEDS: ONDANSETRON 2MG/ML, 2ML IVPush PRN ×2 (06:00→12:19)
[2018-03-27 07:15] VITALS: BP 128/67
[2018-03-27] MEDS: CARVEDILOL 3.125 MG TABLET PO SCH ×2 (08:35→20:49)
[2018-03-27] MEDS: ENOXAPARIN 30 MG/0.3 ML SQ SCH ×2 (08:35→20:48)
[2018-03-27] MEDS: PANTOPRAZOLE 20MG TABLET PO SCH ×2 (08:35→20:49)
[2018-03-27 12:26] VITALS: BP 126/67
[2018-03-27 19:01] VITALS: BP 121/60
[2018-03-27] MEDS: SIMVASTATIN 40 MG TABLET PO SCH (20:49)
[2018-03-27] MEDS: LACTATED RINGERS 1,000 ML IV SCH (23:50)
[2018-03-28] MEDS: OXYcodone IR 5MG TABLET PO PRN ×2 (00:12→21:54)
[2018-03-28] MEDS: ACETAMINOPHEN 500 MG TABLET PO SCH ×4 (00:12→18:15)
[2018-03-28 03:20] VITALS: BP 113/56
[2018-03-28] MEDS: ASPIRIN 81 MG TABLET EC PO SCH (06:16)
[2018-03-28 07:19] VITALS: BP 136/73
[2018-03-28] MEDS: PANTOPRAZOLE 20MG TABLET PO SCH ×2 (08:51→21:44)
[2018-03-28] MEDS: IBUPROFEN 800 MG TABLET PO SCH ×4 (08:51→23:03)
[2018-03-28] MEDS: CARVEDILOL 3.125 MG TABLET PO SCH ×2 (08:51→21:44)
[2018-03-28] MEDS: ENOXAPARIN 30 MG/0.3 ML SQ SCH ×2 (08:52→21:45)
[2018-03-28 13:29] VITALS: BP 115/58
[2018-03-28 19:02] VITALS: BP 131/61
[2018-03-28] MEDS: SIMVASTATIN 40 MG TABLET PO SCH (21:45)
[2018-03-28] MEDS: LACTATED RINGERS 1,000 ML IV SCH (22:00)
[2018-03-29] MEDS: ACETAMINOPHEN 500 MG TABLET PO SCH ×4 (00:03→18:08)
[2018-03-29 02:15] VITALS: BP 107/54
[2018-03-29] MEDS: OXYcodone IR 5MG TABLET PO PRN ×5 (04:55→20:10)
[2018-03-29 05:34] LABS: BASOPHILS # (AUTO) 0.02 x10^3/uL (0-0.1); BASOPHILS % (AUTO) 0 % (0-1); EOSINOPHILS # (AUTO) 0.16 x10^3/uL (0-0.4); EOSINOPHILS % (AUTO) 1 % (1-7); LYMPHOCYTES # (AUTO) 1.74 x10^3/uL (1-3.4); LYMPHOCYTES % (AUTO) 15 % (22-44); MD NO; MEAN CORPUSCULAR HEMOGLOBIN 27.4 pg (27.0-34.8); MEAN CORPUSCULAR HGB CONC 32.7 g/dL (32.4-35.8); MEAN CORPUSCULAR VOLUME 83.8 fL (80-100); MEAN PLATELET VOLUME 7.6 fL (7.4-10.4); MONOCYTES # (AUTO) 1.12 x10^3/uL (0.2-0.8); MONOCYTES % (AUTO) 10 % (2-9); NEUTROPHILS # (AUTO) 8.45 x10^3/uL (1.8-6.8); NEUTROPHILS % (AUTO) 74 % (42-75); PLATELET COUNT 267 x10^3/uL (130-400); RED BLOOD COUNT 4.23 x10^6/uL (3.82-5.3); RED CELL DISTRIBUTION WIDTH 15.8 % (9.6-15.2)
[2018-03-29 05:38] LABS: ALBUMIN 2.5 g/dL (3.4-5.0); CALCIUM 8.4 mg/dL (8.5-10.1); CHLORIDE 111 mmol/L (98-107)
[2018-03-29 05:42] LABS: ALANINE AMINOTRANSFERASE 17 U/L (12-78); ALKALINE PHOSPHATASE 55 U/L (45-117); BILIRUBIN,TOTAL 0.5 mg/dL (0.2-1.0); CREATININE 0.61 mg/dL (0.55-1.02); TOTAL PROTEIN 5.7 g/dL (6.4-8.2)
[2018-03-29 05:46] LABS: ANION GAP 6 mmol/L (5-15)
[2018-03-29] MEDS: ASPIRIN 81 MG TABLET EC PO SCH (06:03)
[2018-03-29 08:10] VITALS: BP 124/69
[2018-03-29] MEDS: CARVEDILOL 3.125 MG TABLET PO SCH ×2 (08:11→20:09)
[2018-03-29] MEDS: ENOXAPARIN 30 MG/0.3 ML SQ SCH ×2 (08:11→20:09)
[2018-03-29] MEDS: PANTOPRAZOLE 20MG TABLET PO SCH ×2 (08:12→20:10)
[2018-03-29] MEDS: IBUPROFEN 800 MG TABLET PO SCH ×3 (08:12→20:09)
[2018-03-29 15:00] VITALS: BP 117/52
[2018-03-29] MEDS: LACTATED RINGERS 1,000 ML IV SCH (18:00)
[2018-03-29 19:08] VITALS: BP 119/74
[2018-03-29] MEDS: SIMVASTATIN 40 MG TABLET PO SCH (20:10)
[2018-03-30 02:21] VITALS: BP 119/71
[2018-03-30] MEDS: ACETAMINOPHEN 500 MG TABLET PO SCH ×4 (04:06→18:27)
[2018-03-30] MEDS: ASPIRIN 81 MG TABLET EC PO SCH (04:06)
[2018-03-30] MEDS: OXYcodone IR 5MG TABLET PO PRN ×2 (04:06→22:05)
[2018-03-30 04:47] LABS: BASOPHILS # (AUTO) 0.04 x10^3/uL (0-0.1); BASOPHILS % (AUTO) 0 % (0-1); EOSINOPHILS # (AUTO) 0.36 x10^3/uL (0-0.4); EOSINOPHILS % (AUTO) 3 % (1-7); LYMPHOCYTES # (AUTO) 1.01 x10^3/uL (1-3.4); LYMPHOCYTES % (AUTO) 7 % (22-44); MD NO; MEAN CORPUSCULAR HEMOGLOBIN 27.2 pg (27.0-34.8); MEAN CORPUSCULAR VOLUME 82.6 fL (80-100); MEAN PLATELET VOLUME 7.7 fL (7.4-10.4); MONOCYTES # (AUTO) 1.12 x10^3/uL (0.2-0.8); MONOCYTES % (AUTO) 8 % (2-9); NEUTROPHILS # (AUTO) 11.63 x10^3/uL (1.8-6.8); NEUTROPHILS % (AUTO) 82 % (42-75); PLATELET COUNT 275 x10^3/uL (130-400); RED BLOOD COUNT 4.54 x10^6/uL (3.82-5.3); RED CELL DISTRIBUTION WIDTH 15.6 % (9.6-15.2)
[2018-03-30 04:56] LABS: ALBUMIN 2.3 g/dL (3.4-5.0); ANION GAP 7 mmol/L (5-15); CALCIUM 8.4 mg/dL (8.5-10.1); CHLORIDE 108 mmol/L (98-107)
[2018-03-30 05:01] LABS: ALANINE AMINOTRANSFERASE 26 U/L (12-78); ALKALINE PHOSPHATASE 85 U/L (45-117); CREATININE 0.44 mg/dL (0.55-1.02); TOTAL PROTEIN 5.4 g/dL (6.4-8.2)
[2018-03-30 06:45] VITALS: BP 116/73
[2018-03-30] MEDS: PANTOPRAZOLE 20MG TABLET PO SCH ×2 (09:09→19:51)
[2018-03-30] MEDS: IBUPROFEN 800 MG TABLET PO SCH ×3 (09:09→19:50)
[2018-03-30] MEDS: ENOXAPARIN 30 MG/0.3 ML SQ SCH ×2 (09:09→19:50)
[2018-03-30] MEDS: CARVEDILOL 3.125 MG TABLET PO SCH ×2 (09:09→19:51)
[2018-03-30 09:10] VITALS: BP 134/63
[2018-03-30] MEDS: AMPICILLIN/SULBACTAM 3 GM in SODIUM CHLORIDE 0.9% 100 ML IV SCH ×2 (12:58→19:51)
[2018-03-30 14:28] VITALS: BP 121/74
[2018-03-30] MEDS: LACTATED RINGERS 1,000 ML IV SCH (15:42)
[2018-03-30 19:18] VITALS: BP 120/70
[2018-03-30] MEDS: DOCUSATE 100 MG CAPSULE PO SCH (19:50)
[2018-03-30] MEDS: SIMVASTATIN 40 MG TABLET PO SCH (19:51)
[2018-03-31 02:03] VITALS: BP 136/75
[2018-03-31] MEDS: OXYcodone IR 5MG TABLET PO PRN ×3 (02:45→21:37)
[2018-03-31] MEDS: ASPIRIN 81 MG TABLET EC PO SCH (04:08)
[2018-03-31] MEDS: AMPICILLIN/SULBACTAM 3 GM in SODIUM CHLORIDE 0.9% 100 ML IV SCH ×3 (04:08→20:20)
[2018-03-31] MEDS: ACETAMINOPHEN 500 MG TABLET PO SCH ×3 (04:08→11:52)
[2018-03-31] MEDS: LACTATED RINGERS 1,000 ML IV SCH (07:28)
[2018-03-31 08:34] VITALS: BP 130/83
[2018-03-31] MEDS: ENOXAPARIN 30 MG/0.3 ML SQ SCH ×2 (09:12→21:29)
[2018-03-31] MEDS: DOCUSATE 100 MG CAPSULE PO SCH ×2 (09:12→20:20)
[2018-03-31] MEDS: CARVEDILOL 3.125 MG TABLET PO SCH ×2 (09:12→20:20)
[2018-03-31] MEDS: PANTOPRAZOLE 20MG TABLET PO SCH ×2 (09:12→21:29)
[2018-03-31] MEDS: IBUPROFEN 800 MG TABLET PO SCH ×2 (09:12→16:59)
[2018-03-31 14:10] VITALS: BP 116/71
[2018-03-31 20:12] VITALS: BP 139/84
[2018-03-31 21:09] LABS: CLOSTRIDIUM DIFFICILE ANTIGEN NEGATIVE; CLOSTRIDIUM DIFFICILE TOXIN NEGATIVE (Negative)
[2018-03-31] MEDS: SIMVASTATIN 40 MG TABLET PO SCH (21:29)
[2018-04-01] MEDS: OXYcodone IR 5MG TABLET PO PRN (02:23)
[2018-04-01 02:28] VITALS: BP 133/74
[2018-04-01] MEDS: AMPICILLIN/SULBACTAM 3 GM in SODIUM CHLORIDE 0.9% 100 ML IV SCH (03:56)
[2018-04-01] MEDS: LACTATED RINGERS 1,000 ML IV SCH (05:00)
[2018-04-01] MEDS: ASPIRIN 81 MG TABLET EC PO SCH (05:51)
[2018-04-01] MEDS: DOCUSATE 100 MG CAPSULE PO SCH (07:13)
[2018-04-01] MEDS: PANTOPRAZOLE 20MG TABLET PO SCH (08:14)
[2018-04-01] MEDS: ENOXAPARIN 30 MG/0.3 ML SQ SCH (08:14)
[2018-04-01] MEDS: CARVEDILOL 3.125 MG TABLET PO SCH (08:14)
[2018-04-01 08:22] VITALS: BP 145/61
[2018-04-01 10:27] VITALS: BP 145/62
== END 2018-04-01 10:31 | disposition home or self-care (01) | DRG 330 ==
LOC: ORIP 12:06 → EDSTATUS 14:00 → 4NOR 18:51 → DCLOUNGE 04-01 10:31
PROVIDERS: ADMIT Surgery; ATTEND Surgery
PROC: 0DBM0ZZ Excision of Descending Colon, Open Approach (ICD-10-PCS; principal; 2018-03-26 14:00)
PROC: BT101ZZ Fluoroscopy of Bladder using Low Osmolar Contrast (ICD-10-PCS; 2018-03-31)
DX: K57.93 Diverticulitis of intestine, part unspecified, without perforation or abscess with bleeding (principal); S37.20XA Unspecified injury of bladder, initial encounter; I10 Essential (primary) hypertension; X58.XXXA Exposure to other specified factors, initial encounter; Z88.5 Allergy status to narcotic agent; Z93.3 Colostomy status; Y93.89 Activity, other specified; Y92.89 Other specified places as the place of occurrence of the external cause; Y99.8 Other external cause status; Z85.41 Personal history of malignant neoplasm of cervix uteri; Z82.49 Family history of ischemic heart disease and other diseases of the circulatory system; Z83.3 Family history of diabetes mellitus
CPT/HCPCS: 36415; 74430; 80048; 80053; 85025; 87324; 88304; 94640; J0171; J0295; J0690; J1100; J1170; J1650; J2250; J2405; J2704; J2710; J3010; J3490; J7613; J0330; J2060; J2370; J7120

== ENCOUNTER 2018-04-05 12:08 | Inpatient (IN) | payer MEDICAID ==
[~2018-04-05] VITALS: Ht 170.2 cm; Wt 72.8 kg
[~2018-04-05 12:08] MED LIST changes: -EPHEDRINE 50 MG/ML, 1ML ONE; -PHENYLEPHRINE 10 MG/ML ONE
[2018-04-05] MEDS ORDERED: SODIUM CHLORIDE FLUSH 10ML SYR IVF ONE (13:00)
[2018-04-05] MEDS ORDERED: MORPHINE SULFATE 4 MG/ML, 1ML ONE ×2 (13:03→13:59)
[2018-04-05] MEDS ORDERED: ONDANSETRON ODT 4 MG ONE (13:06)
[2018-04-05] MEDS: MORPHINE SULFATE 4 MG/ML, 1ML IVPush PRN ×2 (13:20→14:02)
[2018-04-05] MEDS ORDERED: ONDANSETRON ODT 4 MG PO ONE (13:30)
[2018-04-05 13:34] LABS: ALANINE AMINOTRANSFERASE 27 U/L (12-78); ALBUMIN 2.8 g/dL (3.4-5.0); ANION GAP 9 mmol/L (5-15); CALCIUM 9.5 mg/dL (8.5-10.1); CHLORIDE 107 mmol/L (98-107); CREATININE 0.97 mg/dL (0.55-1.02)
[2018-04-05 13:36] LABS: ALKALINE PHOSPHATASE 121 U/L (45-117); BILIRUBIN,TOTAL 0.5 mg/dL (0.2-1.0); TOTAL PROTEIN 7.4 g/dL (6.4-8.2)
[2018-04-05 14:03] LABS: MEAN CORPUSCULAR HEMOGLOBIN 26.6 pg (27.0-34.8); MEAN CORPUSCULAR HGB CONC 33.2 g/dL (32.4-35.8); PLATELET COUNT 581 x10^3/uL (130-400); RED BLOOD COUNT 4.81 x10^6/uL (3.82-5.3); RED CELL DISTRIBUTION WIDTH 16.3 % (9.6-15.2)
[2018-04-05 14:29] LABS: CULTURE INDICATED? YES; MICROSCOPIC INDICATED
[2018-04-05] MEDS ORDERED: OMNIPAQUE 350 MG/ML, 100ML BOTTLE ONE (14:38)
[2018-04-05 14:44] LABS: MD YES
[2018-04-05 14:46] LABS: LYMPH#(MANUAL) 1.98 x10^3/uL (1-3.4); LYMPHS% (MANUAL) 8 % (22-44); METAMYELOCYTES# (MANUAL) 0.49 x10^3/uL (0-0); METAMYELOCYTES% (MANUAL) 2 % (0-1); MONOS#(MANUAL) 0.74 x10^3/uL (0.3-2.7); MONOS% (MANUAL) 3 % (2-9); MYELOCYTES# (MANUAL) 0.25 x10^3/uL (0-0); MYELOCYTES% (MANUAL) 1 % (0-0); SEG#(MANUAL) 21.24 x10^3/uL (1.8-6.8); SEGS% (MANUAL) 86 % (42-75)
[2018-04-05 14:47] LABS: <PLATELET ESTIMATE> INCREASED; <PLT MORPHOLOGY> NORMAL PLT MORPH; HYPOCHROMIA 1+; OVALOCYTES 1+; TOXIC GRAN 1+
[2018-04-05] MEDS ORDERED: CEFTRIAXONE PMX 1GM/50ML 50 ML IVPB ONE (15:30)
[2018-04-05] MEDS ORDERED: METRONIDAZOLE PMX 500MG/100ML 100 ML ONE (15:51)
[2018-04-05] MEDS ORDERED: CEFTRIAXONE PMX 1GM/50ML 50 ML ONE ×2 (15:51→15:54)
[2018-04-05] MEDS ORDERED: METRONIDAZOLE PMX 500MG/100ML 100 ML IV ONE (16:00)
[2018-04-05] MEDS ORDERED: POLYETHYLENE GLYCOL 17 GM PACKET PO PRN (17:00)
[2018-04-05] MEDS ORDERED: ONDANSETRON ODT 4 MG PO PRN (17:00)
[2018-04-05] MEDS ORDERED: LABETALOL 5MG/ML, 20ML IVPush PRN (17:00)
[2018-04-05] MEDS ORDERED: ONDANSETRON 2MG/ML, 2ML IVPush PRN (17:00)
[2018-04-05 17:13] LABS: FREE T4 (FREE THYROXINE) 1.82 ng/dL (0.76-1.46)
[2018-04-05] MEDS: CEFTAROLINE 600 MG in SODIUM CHLORIDE 0.9% 100 ML IV SCH (18:24)
[2018-04-05] MEDS: SODIUM CHLORIDE 0.9% 1,000 ML IV SCH (18:24)
[2018-04-05 21:20] VITALS: BP 116/58
[2018-04-05] MEDS: SIMVASTATIN 40 MG TABLET PO SCH (21:24)
[2018-04-05] MEDS: CARVEDILOL 3.125 MG TABLET PO SCH (21:24)
[2018-04-05] MEDS ORDERED: KETOROLAC 30 MG/1 ML IVPush ONE (22:00)
[2018-04-06] MEDS: METRONIDAZOLE PMX 500MG/100ML 100 ML IV SCH ×3 (00:41→17:45)
[2018-04-06] MEDS: morphine SULFATE 10 MG/ML, 1ML IVPush PRN ×3 (01:43→09:13)
[2018-04-06 02:45] LABS: CLOSTRIDIUM DIFFICILE ANTIGEN NEGATIVE; CLOSTRIDIUM DIFFICILE TOXIN NEGATIVE (Negative)
[2018-04-06 04:00] VITALS: BP 108/69
[2018-04-06] MEDS: CEFTAROLINE 600 MG in SODIUM CHLORIDE 0.9% 100 ML IV SCH ×2 (05:29→19:36)
[2018-04-06] MEDS: ASPIRIN 81 MG TABLET EC PO SCH (05:40)
[2018-04-06 05:41] LABS: CHLORIDE 108 mmol/L (98-107)
[2018-04-06 05:42] LABS: MEAN CORPUSCULAR HEMOGLOBIN 26.5 pg (27.0-34.8); MEAN CORPUSCULAR HGB CONC 32.8 g/dL (32.4-35.8); MEAN CORPUSCULAR VOLUME 80.8 fL (80-100); MEAN PLATELET VOLUME 7.3 fL (7.4-10.4); PLATELET COUNT 550 x10^3/uL (130-400); RED BLOOD COUNT 4.19 x10^6/uL (3.82-5.3); RED CELL DISTRIBUTION WIDTH 16.1 % (9.6-15.2)
[2018-04-06 06:05] LABS: ALANINE AMINOTRANSFERASE 20 U/L (12-78); ALBUMIN 2.2 g/dL (3.4-5.0); ALKALINE PHOSPHATASE 94 U/L (45-117); ANION GAP 9 mmol/L (5-15); BILIRUBIN,TOTAL 0.3 mg/dL (0.2-1.0); CALCIUM 8.9 mg/dL (8.5-10.1); CREATININE 0.72 mg/dL (0.55-1.02); THYROID STIMULATING HORMONE 0.648 mIU/L (0.358-3.740); TOTAL PROTEIN 6.2 g/dL (6.4-8.2)
[2018-04-06 06:30] LABS: BASOPHILS # (AUTO) 0.04 x10^3/uL (0-0.1); BASOPHILS % (AUTO) 0 % (0-1); EOSINOPHILS # (AUTO) 0.63 x10^3/uL (0-0.4); EOSINOPHILS % (AUTO) 3 % (1-7); LYMPHOCYTES # (AUTO) 1.54 x10^3/uL (1-3.4); LYMPHOCYTES % (AUTO) 8 % (22-44); MD SCAN; MONOCYTES # (AUTO) 1.28 x10^3/uL (0.2-0.8); MONOCYTES % (AUTO) 7 % (2-9); NEUTROPHILS # (AUTO) 16.09 x10^3/uL (1.8-6.8); NEUTROPHILS % (AUTO) 82 % (42-75)
[2018-04-06 07:20] VITALS: BP 102/66
[2018-04-06] MEDS: SENNA/DOCUSATE TABLET PO SCH (09:00)
[2018-04-06] MEDS: CARVEDILOL 3.125 MG TABLET PO SCH ×2 (09:00→21:26)
[2018-04-06] MEDS: FLUTICASONE/VILANTEROL 100-25MCG/INH INH SCH (09:00)
[2018-04-06] MEDS: SODIUM CHLORIDE 0.9% 1,000 ML IV SCH (09:12)
[2018-04-06] MEDS ORDERED: PROPOFOL 10 MG/ML, 20ML ONE (13:59)
[2018-04-06] MEDS ORDERED: ONDANSETRON 2MG/ML, 2ML ONE (13:59)
[2018-04-06] MEDS ORDERED: FENTANYL PF 100 MCG/2ML ONE ×2 (14:07→14:54)
[2018-04-06] MEDS ORDERED: MIDAZOLAM 1 MG/ML, 2ML ONE (14:34)
[2018-04-06] MEDS ORDERED: PROMETHAZINE 25 MG/ML, 1ML IV PRN (15:00)
[2018-04-06] MEDS ORDERED: FENTANYL PF 100 MCG/2ML IV PRN (15:00)
[2018-04-06] MEDS ORDERED: METOPROLOL 1 MG/ML, 5ML IV PRN (15:00)
[2018-04-06] MEDS ORDERED: EPHEDRINE 50 MG/ML, 1ML IVPush PRN (15:00)
[2018-04-06] MEDS ORDERED: EPHEDRINE 50 MG/ML, 1ML IM PRN (15:00)
[2018-04-06] MEDS ORDERED: ONDANSETRON ODT 8 MG PO PRN (15:00)
[2018-04-06] MEDS ORDERED: DIPHENHYDRAMINE 50 MG/ML, 1ML IVPush PRN (15:00)
[2018-04-06] MEDS ORDERED: hydrALAzine 20 MG/ML, 1ML IV PRN (15:00)
[2018-04-06] MEDS ORDERED: MORPHINE SULFATE 4 MG/ML, 1ML ONE ×3 (15:24→15:44)
[2018-04-06] MEDS: MORPHINE SULFATE 4 MG/ML, 1ML IVPush PRN ×4 (15:25→15:55)
[2018-04-06 19:16] VITALS: BP 108/70
[2018-04-06] MEDS: D5%-LACTATED RINGERS 1,000 ML IV SCH (19:37)
[2018-04-06] MEDS: SIMVASTATIN 40 MG TABLET PO SCH (21:26)
[2018-04-06] MEDS: OXYcodone 5 MG/5 ML ORAL.SOL UDC PO PRN (21:26)
[2018-04-07 01:31] VITALS: BP 113/76
[2018-04-07] MEDS: METRONIDAZOLE PMX 500MG/100ML 100 ML IV SCH ×3 (01:44→17:25)
[2018-04-07] MEDS: OXYcodone 5 MG/5 ML ORAL.SOL UDC PO PRN ×4 (04:25→20:01)
[2018-04-07] MEDS: ASPIRIN 81 MG TABLET EC PO SCH (05:59)
[2018-04-07 07:00] VITALS: BP 108/72
[2018-04-07] MEDS: CEFTAROLINE 600 MG in SODIUM CHLORIDE 0.9% 100 ML IV SCH ×2 (07:38→18:45)
[2018-04-07] MEDS: D5%-LACTATED RINGERS 1,000 ML IV SCH (08:00)
[2018-04-07] MEDS ORDERED: LACTATED RINGERS 1,000 ML IV SCH (08:30)
[2018-04-07] MEDS: SENNA/DOCUSATE TABLET PO SCH (08:32)
[2018-04-07] MEDS: CARVEDILOL 3.125 MG TABLET PO SCH ×2 (08:33→20:01)
[2018-04-07 08:45] VITALS: BP 114/58
[2018-04-07 08:45] LABS: MEAN CORPUSCULAR HEMOGLOBIN 26.3 pg (27.0-34.8); MEAN CORPUSCULAR HGB CONC 32.9 g/dL (32.4-35.8); MEAN CORPUSCULAR VOLUME 80.1 fL (80-100); MEAN PLATELET VOLUME 6.9 fL (7.4-10.4); PLATELET COUNT 581 x10^3/uL (130-400); RED BLOOD COUNT 3.81 x10^6/uL (3.82-5.3); RED CELL DISTRIBUTION WIDTH 16.4 % (9.6-15.2)
[2018-04-07 09:00] LABS: BASOPHILS # (AUTO) 0.11 x10^3/uL (0-0.1); BASOPHILS % (AUTO) 1 % (0-1); EOSINOPHILS # (AUTO) 0.46 x10^3/uL (0-0.4); EOSINOPHILS % (AUTO) 3 % (1-7); LYMPHOCYTES # (AUTO) 1.42 x10^3/uL (1-3.4); LYMPHOCYTES % (AUTO) 10 % (22-44); MD SCAN; MONOCYTES # (AUTO) 0.99 x10^3/uL (0.2-0.8); MONOCYTES % (AUTO) 7 % (2-9); NEUTROPHILS # (AUTO) 11.22 x10^3/uL (1.8-6.8); NEUTROPHILS % (AUTO) 79 % (42-75)
[2018-04-07 09:30] LABS: ALANINE AMINOTRANSFERASE 17 U/L (12-78); ANION GAP 5 mmol/L (5-15); CALCIUM 8.3 mg/dL (8.5-10.1); CHLORIDE 107 mmol/L (98-107); CREATININE 0.64 mg/dL (0.55-1.02)
[2018-04-07 09:33] LABS: ALKALINE PHOSPHATASE 78 U/L (45-117); BILIRUBIN,TOTAL 0.4 mg/dL (0.2-1.0); TOTAL PROTEIN 5.7 g/dL (6.4-8.2)
[2018-04-07] MEDS: FLUTICASONE/VILANTEROL 100-25MCG/INH INH SCH (10:47)
[2018-04-07 14:44] VITALS: BP 95/54
[2018-04-07 19:18] VITALS: BP 114/57
[2018-04-07] MEDS: SIMVASTATIN 40 MG TABLET PO SCH (20:00)
[2018-04-08] MEDS: METRONIDAZOLE PMX 500MG/100ML 100 ML IV SCH ×3 (01:09→17:07)
[2018-04-08] MEDS: OXYcodone 5 MG/5 ML ORAL.SOL UDC PO PRN ×5 (01:09→20:49)
[2018-04-08 01:14] VITALS: BP 119/61
[2018-04-08] MEDS: ASPIRIN 81 MG TABLET EC PO SCH (06:34)
[2018-04-08] MEDS: CEFTAROLINE 600 MG in SODIUM CHLORIDE 0.9% 100 ML IV SCH ×2 (06:34→18:38)
[2018-04-08 07:11] LABS: BASOPHILS # (AUTO) 0.09 x10^3/uL (0-0.1); BASOPHILS % (AUTO) 1 % (0-1); EOSINOPHILS # (AUTO) 0.37 x10^3/uL (0-0.4); EOSINOPHILS % (AUTO) 3 % (1-7); LYMPHOCYTES # (AUTO) 1.67 x10^3/uL (1-3.4); LYMPHOCYTES % (AUTO) 15 % (22-44); MD NO; MEAN CORPUSCULAR HEMOGLOBIN 26.3 pg (27.0-34.8); MEAN CORPUSCULAR HGB CONC 32.8 g/dL (32.4-35.8); MEAN CORPUSCULAR VOLUME 80.4 fL (80-100); MONOCYTES # (AUTO) 0.82 x10^3/uL (0.2-0.8); MONOCYTES % (AUTO) 7 % (2-9); NEUTROPHILS % (AUTO) 74 % (42-75); PLATELET COUNT 595 x10^3/uL (130-400); RED BLOOD COUNT 3.74 x10^6/uL (3.82-5.3); RED CELL DISTRIBUTION WIDTH 16.4 % (9.6-15.2)
[2018-04-08 07:19] LABS: ALBUMIN 1.9 g/dL (3.4-5.0); ANION GAP 6 mmol/L (5-15); CALCIUM 8.3 mg/dL (8.5-10.1); CHLORIDE 109 mmol/L (98-107); CREATININE 0.54 mg/dL (0.55-1.02)
[2018-04-08] MEDS: SENNA/DOCUSATE TABLET PO SCH (07:36)
[2018-04-08 07:38] VITALS: BP 109/57
[2018-04-08 09:28] VITALS: BP 113/54
[2018-04-08] MEDS: CARVEDILOL 3.125 MG TABLET PO SCH ×2 (09:28→20:41)
[2018-04-08] MEDS: FLUTICASONE/VILANTEROL 100-25MCG/INH INH SCH (09:28)
[2018-04-08] MEDS: morphine SULFATE 10 MG/ML, 1ML IVPush PRN (09:56)
[2018-04-08 14:21] VITALS: BP 126/95
[2018-04-08 19:23] VITALS: BP 149/70
[2018-04-08] MEDS: SIMVASTATIN 40 MG TABLET PO SCH (20:41)
[2018-04-09] MEDS: METRONIDAZOLE PMX 500MG/100ML 100 ML IV SCH (01:22)
[2018-04-09 03:04] VITALS: BP 113/54
[2018-04-09] MEDS: OXYcodone 5 MG/5 ML ORAL.SOL UDC PO PRN (05:54)
[2018-04-09] MEDS: ASPIRIN 81 MG TABLET EC PO SCH (05:54)
[2018-04-09] MEDS: CEFTAROLINE 600 MG in SODIUM CHLORIDE 0.9% 100 ML IV SCH (05:54)
[2018-04-09 08:21] VITALS: BP 117/58
[2018-04-09] MEDS: SENNA/DOCUSATE TABLET PO SCH (08:29)
[2018-04-09] MEDS: PSYLLIUM PACKET PO SCH (08:29)
[2018-04-09] MEDS: LINEZOLID PMX 600MG/300ML 300 ML IV SCH ×2 (08:33→20:40)
[2018-04-09] MEDS: FLUTICASONE/VILANTEROL 100-25MCG/INH INH SCH (08:33)
[2018-04-09] MEDS: CARVEDILOL 3.125 MG TABLET PO SCH ×2 (08:34→19:53)
[2018-04-09] MEDS ORDERED: CEFT2VIA29 IV (08:58)
[2018-04-09] MEDS ORDERED: LINE600T37 PO (08:58)
[2018-04-09] MEDS ORDERED: ACET650S21 PO (10:54)
[2018-04-09] MEDS: morphine SULFATE 10 MG/ML, 1ML IVPush PRN ×3 (11:02→21:16)
[2018-04-09] MEDS: CEFTAZIDIME 2,000 MG in SODIUM CHLORIDE 0.9% 50 ML IV SCH ×2 (11:02→19:52)
[2018-04-09 12:36] VITALS: BP 112/60
[2018-04-09] MEDS ORDERED: LIDOCAINE-MPF 1%, 2ML ONE (12:50)
[2018-04-09 18:56] VITALS: BP 127/69
[2018-04-09] MEDS: SIMVASTATIN 40 MG TABLET PO SCH (19:53)
[2018-04-10 01:37] VITALS: BP 125/67
[2018-04-10] MEDS: CEFTAZIDIME 2,000 MG in SODIUM CHLORIDE 0.9% 50 ML IV SCH ×2 (02:45→11:22)
[2018-04-10] MEDS: ASPIRIN 81 MG TABLET EC PO SCH (05:17)
[2018-04-10 06:13] LABS: BASOPHILS % (AUTO) 2 % (0-1); EOSINOPHILS % (AUTO) 5 % (1-7); LYMPHOCYTES % (AUTO) 22 % (22-44); MD SCAN; MEAN CORPUSCULAR HEMOGLOBIN 26.1 pg (27.0-34.8); MEAN CORPUSCULAR HGB CONC 32.5 g/dL (32.4-35.8); MEAN CORPUSCULAR VOLUME 80.4 fL (80-100); MEAN PLATELET VOLUME 7.2 fL (7.4-10.4); MONOCYTES % (AUTO) 8 % (2-9); NEUTROPHILS # (AUTO) 5.42 x10^3/uL (1.8-6.8); NEUTROPHILS % (AUTO) 63 % (42-75); PLATELET COUNT 590 x10^3/uL (130-400); RED BLOOD COUNT 4.14 x10^6/uL (3.82-5.3); RED CELL DISTRIBUTION WIDTH 16.1 % (9.6-15.2)
[2018-04-10 07:17] VITALS: BP 137/75
[2018-04-10] MEDS: LINEZOLID PMX 600MG/300ML 300 ML IV SCH (08:22)
[2018-04-10] MEDS: morphine SULFATE 10 MG/ML, 1ML IVPush PRN ×2 (08:22→11:22)
[2018-04-10] MEDS: FLUTICASONE/VILANTEROL 100-25MCG/INH INH SCH (08:23)
[2018-04-10] MEDS: PSYLLIUM PACKET PO SCH (08:26)
[2018-04-10] MEDS: SENNA/DOCUSATE TABLET PO SCH (08:26)
[2018-04-10] MEDS: CARVEDILOL 3.125 MG TABLET PO SCH (08:27)
[2018-04-10] MEDS ORDERED: MORPHINE SULFATE 4 MG/ML, 1ML IVPush ONE (12:00)
[2018-04-10] MEDS ORDERED: morphine SULFATE 10 MG/ML, 1ML IVPush ONE ×2 (12:00)
[2018-04-10] MEDS ORDERED: MORPHINE SULFATE 4 MG/ML, 1ML IVPush PRN (12:00)
[2018-04-10 14:00] VITALS: BP 140/81
== END 2018-04-10 16:44 | DRG 579 ==
LOC: ED 15:00 → EDIP 15:43 → 3NE 17:10
PROVIDERS: ADMIT Internal Medicine; ATTEND Internal Medicine
PROC: 0J980ZZ Drainage of Abdomen Subcutaneous Tissue and Fascia, Open Approach (ICD-10-PCS; principal; 2018-04-06 15:30)
PROC: 02HV33Z Insertion of Infusion Device into Superior Vena Cava, Percutaneous Approach (ICD-10-PCS; 2018-04-09)
PROC: B5181ZA Fluoroscopy of Superior Vena Cava using Low Osmolar Contrast, Guidance (ICD-10-PCS; 2018-04-09)
PROC: B548ZZA Ultrasonography of Superior Vena Cava, Guidance (ICD-10-PCS; 2018-04-09)
DX: L03.311 Cellulitis of abdominal wall (principal); E43 Unspecified severe protein-calorie malnutrition; L02.211 Cutaneous abscess of abdominal wall; Z68.25 Body mass index [BMI] 25.0-25.9, adult; E78.5 Hyperlipidemia, unspecified; I25.10 Atherosclerotic heart disease of native coronary artery without angina pectoris; I25.2 Old myocardial infarction; J44.9 Chronic obstructive pulmonary disease, unspecified; K21.9 Gastro-esophageal reflux disease without esophagitis; K44.9 Diaphragmatic hernia without obstruction or gangrene; N20.0 Calculus of kidney; Z82.49 Family history of ischemic heart disease and other diseases of the circulatory system; Z83.3 Family history of diabetes mellitus; Z85.41 Personal history of malignant neoplasm of cervix uteri; Z87.891 Personal history of nicotine dependence; Z90.49 Acquired absence of other specified parts of digestive tract; Z95.5 Presence of coronary angioplasty implant and graft; N30.90 Cystitis, unspecified without hematuria; Z88.6 Allergy status to analgesic agent
CPT/HCPCS: 36415; 36569; 74018; 74177; 76937; 77001; 80048; 80053; 81001; 82040; 83605; 83690; 83735; 84100; 84145; 84439; 84443; 85025; 87015; 87040; 87070; 87075; 87077; 87086; 87102; 87106; 87116; 87147; 87186; 87205; 87206; 87324; 89055; 96365; 96375; 96376; J0696; J0712; J0713; J1885; J2020; J2250; J2405; J2704; J3010; J3490; Q0162; Q9967; C1751; J2270; J7030; J7120; J7121